=== PATIENT | male | born 1960 | race Two or more races ===

== ENCOUNTER → 2022-08-26 | Emergency (ER) | payer OTHER ==
[~2022-08-26] VITALS: Ht 177.8 cm; Wt 86.4 kg
[2022-08-26 00:50] VITALS: BP 152/107
== END | disposition home or self-care (01) ==
LOC: ER 00:26
DX: S46.912A Strain of unspecified muscle, fascia and tendon at shoulder and upper arm level, left arm, initial encounter (principal); F15.10 Other stimulant abuse, uncomplicated; V43.52XA Car driver injured in collision with other type car in traffic accident, initial encounter; Y93.89 Activity, other specified; Y92.410 Unspecified street and highway as the place of occurrence of the external cause; Y99.8 Other external cause status
CPT/HCPCS: 73030

== ENCOUNTER 2022-09-02 06:16 | Emergency (ER) | payer OTHER ==
[~2022-09-02] VITALS: Ht 177.8 cm; Wt 92.7 kg
[2022-09-02 07:00] VITALS: BP 148/78
[2022-09-02] MEDS ORDERED: KETOROLAC TROMETH 60MG/2ML VIAL IM ONE (07:00)
[2022-09-02] MEDS ORDERED: IBUP800T27 PO (07:03)
== END 2022-09-02 07:20 | disposition home or self-care (01) ==
LOC: ER 06:16
DX: M75.32 Calcific tendinitis of left shoulder (principal); S46.912D Strain of unspecified muscle, fascia and tendon at shoulder and upper arm level, left arm, subsequent encounter; X58.XXXD Exposure to other specified factors, subsequent encounter
CPT/HCPCS: 96372; 99283; J1885